=== PATIENT | female | born 1975 ===

== ENCOUNTER 2019-11-09 06:34 | Inpatient (IN) ==
[2019-11-09 08:00] LABS: Hematocrit 25.7 VOL% (35.7-47.0); INR 1.1; PT Patient Result 11.5 SECS (9.8-11.9); Partial Thromboplastin Time 23.3 SECS (23.9-33.8)
[2019-11-09 08:03] LABS: Apearance,Urine CLEAR (Clear); Bilirubin,Urine Negative (Negative); Blood, Urine Negative (Negative); Glucose,Urine (UA) Negative (Negative); Ketones,Urine Negative (Negative); Nitrite,Urine Negative (Negative); Protein,Urine Negative; Squamous Epithelial Cell,Urine Occasional /HPF (0-10); Urine Color Colorless (Yellow); Urine Specific Gravity 1.002 (1.001-1.035); Urine Urobilinogen < 2.0 EU/DL (0.2-1.0); WBC,Urine <1 /HPF (0-6)
[2019-11-09 08:09] LABS: Albumin 2.9 G/DL (3.4-5.0); Bilirubin,Total 0.4 MG/DL (0.2-1.0); Calcium 7.6 MG/DL (8.5-10.1); Total Protein 8.2 G/DL (6.4-8.3)
[2019-11-09 08:22] LABS: Basophils # 0.1 10*3/uL (0.0-0.2); Basophils % 1.1 % (0.0-0.8); Eosinophils # 0.1 10*3/uL (0.0-0.87); Immature Granulocytes % 1.1 %; Immature Granulocytes Absolute 0.05 #; Lymphocytes # 1.8 10*3/uL (1.4-4.0); Lymphocytes % 41.1 % (21.3-54.2); Mean Corpuscular HGB Conc 27.6 GM/DL (32-36); Mean Corpuscular Volume 61.2 FL (87-102); Monocytes % 8.9 % (1.7-12.7); NRBC # 0.02 10*3/uL; Neutrophils % 44.8 % (38.7-73.9); Red Cell Distribution Width 22.1 % (9.3-17.3); White Blood Count 4.4 T/CUMM (4-12)
[2019-11-09 08:25] LABS: Platelet Count 21 T/CUMM (130-400)
[2019-11-09 08:26] LABS: Hemoglobin 7.1 GM/DL (12.0-16.0)
[2019-11-09 08:29] LABS: Hypochromasia 2+; Microcytosis 1+; Platelet Estimate Decreased
[2019-11-09] MEDS ORDERED: SODIUM CHLORIDE 0.9% 1,000 ML IV STA (08:49)
[2019-11-09] MEDS ORDERED: PANTOPRAZOLE 40 MG VIAL IV STA (08:49)
[2019-11-09] MEDS ORDERED: POTASSIUM CHLORIDE 20 MEQ TABLET PO STA (08:50)
[2019-11-09] MEDS ORDERED: GLUCAGON 1 MG VIAL IM PRN (09:21)
[2019-11-09] MEDS ORDERED: DEXTROSE 50% 25 GM/50 ML VIAL IV PRN (09:21)
[2019-11-09] MEDS ORDERED: LORazepam 2 MG/1 ML VIAL IV PRN (09:24)
[2019-11-09] MEDS ORDERED: ACETAMINOPHEN 325 MG TABLET PO PRN (09:28)
[2019-11-09] MEDS ORDERED: ONDANSETRON 4 MG/2 ML VIAL IV PRN (09:28)
[2019-11-09] MEDS ORDERED: SODIUM CHLORIDE 0.9% 1,000 ML IV PRN (09:51)
[2019-11-09] MEDS ORDERED: DEXTROSE 10% 250 ML BAG IV PRN (12:00)
[2019-11-09] MEDS: chlordiazePOXIDE 25 MG CAPSULE PO SCH ×3 (13:53→21:38)
[2019-11-09] MEDS: DEXT 5% NACL 0.45% KCL 20 MEQ 20 MEQ/1,000 ML BAG IV SCH ×2 (17:51→19:50)
[2019-11-09] MEDS ORDERED: EFAVIRENZ EMTRICITABIN TENOFOV PO SCH (21:00)
[2019-11-09] MEDS: THIAMINE 200 MG/2 ML VIAL IV SCH (21:38)
[2019-11-10] MEDS: DEXT 5% NACL 0.45% KCL 20 MEQ 20 MEQ/1,000 ML BAG IV SCH (03:50)
[2019-11-10 05:44] LABS: Basophils % 0.5 % (0.0-0.8); Eosinophils # 0.3 10*3/uL (0.0-0.87); Eosinophils % 6.6 % (0.00-10.9); Hematocrit 31.5 VOL% (35.7-47.0); Immature Granulocytes % 0.2 %; Immature Granulocytes Absolute 0.01 #; Lymphocytes # 1.5 10*3/uL (1.4-4.0); Lymphocytes % 34.5 % (21.3-54.2); Mean Corpuscular HGB Conc 29.2 GM/DL (32-36); Monocytes % 9.9 % (1.7-12.7); Neutrophils % 48.3 % (38.7-73.9); Red Blood Count 4.63 MC/CUMM (3.8-5.5); Red Cell Distribution Width 26.1 % (9.3-17.3); White Blood Count 4.2 T/CUMM (4-12)
[2019-11-10 05:53] LABS: Hemoglobin 9.2 GM/DL (12.0-16.0); Platelet Count 18 T/CUMM (130-400)
[2019-11-10 05:54] LABS: % Iron Saturation 11.7 % (18-50); Ferritin 6.6 ng/ml (8-252); Iron 46 UG/DL (50-170); Iron Binding Capacity 392 UG/DL (250-450)
[2019-11-10 06:02] LABS: Vitamin B12 336 PG/ML (211-911)
[2019-11-10 06:03] LABS: Anisocytosis 1+; Hypochromasia 2+; Microcytosis 1+
[2019-11-10 06:04] LABS: Ovalocytes Slight; Platelet Estimate Decreased
[2019-11-10 06:59] LABS: Sedimentation Rate-Westergren 10 MM/HR (0-20)
[2019-11-10] MEDS: chlordiazePOXIDE 25 MG CAPSULE PO SCH (08:30)
[2019-11-10] MEDS ORDERED: PANTOPRAZOLE 40 MG TABLET PO SCH (09:00)
[2019-11-10] MEDS ORDERED: FOLIC ACID 0.4 MG TABLET PO SCH (09:00)
[2019-11-10] MEDS: THIAMINE 200 MG/2 ML VIAL IV SCH (10:07)
[2019-11-10 11:52] VITALS: BP 129/86
[2019-11-10] MEDS ORDERED: LOPERAMIDE 2 MG CAPSULE PO PRN (12:04)
[2019-11-11 08:27] LABS: Hemoglobin A1 (Alkaline) 97.3 % (96.5-98.5); Hemoglobin A2 (Alkaline) 2.7 % (1.5-3.5)
[2019-11-11] MEDS ORDERED: FERROUS SULFATE 325 MG TABLET PO SCH (09:00)
== END 2019-11-10 13:23 | disposition home or self-care (01) | DRG 137 ==
LOC: N.ED 06:34 → EDUNIT# 06:43 → EDBD 06:43 → N.EDINP 09:21 → N.2E 10:50
PROVIDERS: ADMIT Hospitalist; ATTEND Hospitalist

== ENCOUNTER 2020-04-15 06:08 | Inpatient (IN) ==
[2020-04-15] MEDS ORDERED: SODIUM CHLORIDE 0.9% 1,000 ML IV STA (06:32)
[2020-04-15 06:56] LABS: Basophils % 0.2 % (0.0-0.8); Eosinophils # 0.1 10*3/uL (0.0-0.87); Eosinophils % 2.3 % (0.00-10.9); Immature Granulocytes % 1.8 %; Immature Granulocytes Absolute 0.11 #; Lymphocytes % 16.4 % (21.3-54.2); Mean Corpuscular HGB Conc 25.2 GM/DL (32-36); Mean Corpuscular Volume 62.5 FL (87-102); Monocytes % 14.4 % (1.7-12.7); NRBC # 0.15 10*3/uL; Neutrophils % 64.9 % (38.7-73.9); Red Blood Count 1.84 MC/CUMM (3.8-5.5); Red Cell Distribution Width 18.6 % (9.3-17.3)
[2020-04-15] MEDS ORDERED: SODIUM CHLORIDE 0.9% 1,000 ML IV PRN (07:04)
[2020-04-15 07:07] LABS: Hematocrit 11.5 VOL% (35.7-47.0); Hemoglobin 2.9 GM/DL (12.0-16.0)
[2020-04-15 07:08] LABS: Platelet Count 3 T/CUMM (130-400)
[2020-04-15] MEDS ORDERED: MORPHINE 10 MG/1 ML VIAL IV STA (07:08)
[2020-04-15] MEDS ORDERED: cloNIDine 0.1 MG TABLET PO STA (07:09)
[2020-04-15 07:23] LABS: Albumin 2.2 G/DL (3.4-5.0); Bilirubin,Total 0.4 MG/DL (0.2-1.0); Calcium 7.1 MG/DL (8.5-10.1); Osmolality,Calculated 278.4 MOS/KG (273-304); Potassium 2.9 MMOL/L (3.5-5.1); Total Protein 6.5 G/DL (6.4-8.3)
[2020-04-15] MEDS ORDERED: ZALEPLON 5 MG CAPSULE PO PRN (07:46)
[2020-04-15] MEDS ORDERED: ONDANSETRON 4 MG/2 ML VIAL IV PRN (07:46)
[2020-04-15] MEDS ORDERED: ACETAMINOPHEN 325 MG TABLET PO PRN (07:46)
[2020-04-15] MEDS ORDERED: PANTOPRAZOLE 40 MG TABLET PO SCH (09:00)
[2020-04-15 15:33] LABS: Bilirubin,Urine Negative (Negative); Blood, Urine Large mg/dL (Negative); Glucose,Urine (UA) Negative (Negative); Ketones,Urine Negative (Negative); Mucus,Urine Occasional /LPF (Occasional); Nitrite,Urine Negative (Negative); Protein,Urine 100 MG/DL; RBC,Urine 1985 /HPF (0-4); Urine Appearance Slightly Hazy (Clear); Urine Color Amber (Yellow); Urine Specific Gravity 1.015 (1.001-1.035); WBC,Urine 13 /HPF (0-6)
[2020-04-15] MEDS ORDERED: LOPERAMIDE 2 MG CAPSULE PO PRN (17:36)
[2020-04-15] MEDS ORDERED: chlordiazePOXIDE 10 MG CAPSULE PO PRN (17:41)
[2020-04-15] MEDS ORDERED: LORazepam 2 MG/1 ML VIAL IV PRN (18:01)
[2020-04-16 04:31] LABS: Basophils # 0.1 10*3/uL (0.0-0.2); Basophils % 1.1 % (0.0-0.8); Eosinophils # 0.2 10*3/uL (0.0-0.87); Eosinophils % 2.5 % (0.00-10.9); Hematocrit 25.8 VOL% (35.7-47.0); Hemoglobin 8.2 GM/DL (12.0-16.0); Immature Granulocytes % 2.5 %; Immature Granulocytes Absolute 0.16 #; Lymphocytes # 1.3 10*3/uL (1.4-4.0); Lymphocytes % 20.9 % (21.3-54.2); Mean Corpuscular HGB Conc 31.8 GM/DL (32-36); Mean Corpuscular Volume 78.9 FL (87-102); Monocytes % 13.2 % (1.7-12.7); Neutrophils % 59.8 % (38.7-73.9); Red Blood Count 3.27 MC/CUMM (3.8-5.5); Red Cell Distribution Width 22.5 % (9.3-17.3); White Blood Count 6.3 T/CUMM (4-12)
[2020-04-16 04:33] LABS: Platelet Count 9 T/CUMM (130-400)
[2020-04-16 04:48] LABS: Bilirubin,Total 0.6 MG/DL (0.2-1.0); Calcium 7.2 MG/DL (8.5-10.1); Osmolality,Calculated 272.7 MOS/KG (273-304); Potassium 3.2 MMOL/L (3.5-5.1); Thyroid Stimulating Hormone 3.25 uIU/ml (0.358-3.74); Total Protein 5.7 G/DL (6.4-8.3)
[2020-04-16 05:14] LABS: Hypochromasia 1+
[2020-04-16 05:15] LABS: Microcytosis Slight; Platelet Estimate Decreased
[2020-04-16] MEDS ORDERED: SODIUM CHLORIDE 0.9% 1,000 ML IV PRN ×2 (05:34→17:04)
[2020-04-16] MEDS ORDERED: POTASSIUM CHLORIDE 20 MEQ TABLET PO ONE (07:31)
[2020-04-16] MEDS ORDERED: CALCIUM GLUCONATE 1,000 MG in SODIUM CHLORIDE 0.9% 100 ML IV ONE (09:00)
[2020-04-16] MEDS: FERROUS SULFATE 325 MG TABLET PO SCH (09:46)
[2020-04-16] MEDS: FAMOTIDINE 20 MG TABLET PO SCH (09:47)
[2020-04-16] MEDS: FOLIC ACID 0.4 MG TABLET PO SCH (09:49)
[2020-04-16] MEDS: NICOTINE 21 MG/24 HR PATCH TRANSDERM SCH (09:50)
[2020-04-16 16:42] LABS: Basophils % 0.6 % (0.0-0.8); Eosinophils # 0.1 10*3/uL (0.0-0.87); Eosinophils % 1.8 % (0.00-10.9); Hematocrit 22.7 VOL% (35.7-47.0); Hemoglobin 7.3 GM/DL (12.0-16.0); Immature Granulocytes % 2.3 %; Immature Granulocytes Absolute 0.15 #; Lymphocytes % 15.5 % (21.3-54.2); Mean Corpuscular HGB Conc 32.2 GM/DL (32-36); Mean Corpuscular Volume 77.5 FL (87-102); Monocytes % 10.3 % (1.7-12.7); NRBC # 0.36 10*3/uL; Neutrophils % 69.5 % (38.7-73.9); Red Blood Count 2.93 MC/CUMM (3.8-5.5); Red Cell Distribution Width 22.5 % (9.3-17.3); White Blood Count 6.6 T/CUMM (4-12)
[2020-04-16 16:44] LABS: Platelet Count 16 T/CUMM (130-400)
[2020-04-17 04:41] LABS: Basophils # 0.1 10*3/uL (0.0-0.2); Basophils % 0.9 % (0.0-0.8); Eosinophils # 0.2 10*3/uL (0.0-0.87); Eosinophils % 3.4 % (0.00-10.9); Hematocrit 27.8 VOL% (35.7-47.0); Hemoglobin 9.3 GM/DL (12.0-16.0); Immature Granulocytes % 2.3 %; Immature Granulocytes Absolute 0.13 #; Lymphocytes # 1.2 10*3/uL (1.4-4.0); Lymphocytes % 21.2 % (21.3-54.2); Mean Corpuscular HGB Conc 33.5 GM/DL (32-36); Mean Corpuscular Volume 82.2 FL (87-102); Monocytes % 12.7 % (1.7-12.7); NRBC # 0.38 10*3/uL; Neutrophils % 59.5 % (38.7-73.9); Red Blood Count 3.38 MC/CUMM (3.8-5.5); Red Cell Distribution Width 21.9 % (9.3-17.3); White Blood Count 5.6 T/CUMM (4-12)
[2020-04-17 04:54] LABS: Platelet Count 8 T/CUMM (130-400)
[2020-04-17 05:01] LABS: Hypochromasia 1+; Microcytosis 1+; Ovalocytes Slight; Platelet Estimate Decreased
[2020-04-17 05:20] LABS: Calcium 7.3 MG/DL (8.5-10.1); Osmolality,Calculated 275.4 MOS/KG (273-304); Potassium 3.4 MMOL/L (3.5-5.1); Total Protein 5.7 G/DL (6.4-8.3)
[2020-04-17] MEDS ORDERED: SODIUM CHLORIDE 0.9% 1,000 ML IV PRN ×2 (05:30→18:42)
[2020-04-17] MEDS ORDERED: POTASSIUM CHLORIDE 20 MEQ TABLET PO ONE (08:30)
[2020-04-17] MEDS: FERROUS SULFATE 325 MG TABLET PO SCH (08:56)
[2020-04-17] MEDS: NICOTINE 21 MG/24 HR PATCH TRANSDERM SCH (08:56)
[2020-04-17] MEDS: FOLIC ACID 0.4 MG TABLET PO SCH (08:56)
[2020-04-17] MEDS: FAMOTIDINE 20 MG TABLET PO SCH (08:56)
[2020-04-17] MEDS: cefTRIAXone 1,000 MG in SYRINGE 1 EACH IV SCH (14:34)
[2020-04-17 16:11] LABS: % CD4 (T Cells) 15 % (32-64); % CD8 (T Cells) 52 % (13-40); 4/8 Ratio 0.3 (>=0.9)
[2020-04-17 18:39] LABS: INR 2.1; PT Patient Result 21.7 SECS (9.8-11.9); Partial Thromboplastin Time 37.4 SECS (23.9-33.8)
[2020-04-18 05:48] LABS: Basophils % 0.5 % (0.0-0.8); Eosinophils # 0.1 10*3/uL (0.0-0.87); Eosinophils % 2.5 % (0.00-10.9); Hematocrit 22.3 VOL% (35.7-47.0); Immature Granulocytes % 1.1 %; Immature Granulocytes Absolute 0.06 #; Lymphocytes # 1.4 10*3/uL (1.4-4.0); Lymphocytes % 24.8 % (21.3-54.2); Mean Corpuscular HGB Conc 32.7 GM/DL (32-36); Monocytes % 11.5 % (1.7-12.7); NRBC # 0.09 10*3/uL; Neutrophils % 59.6 % (38.7-73.9); Red Blood Count 2.72 MC/CUMM (3.8-5.5); Red Cell Distribution Width 22.6 % (9.3-17.3); White Blood Count 5.6 T/CUMM (4-12)
[2020-04-18 06:01] LABS: Calcium 7.9 MG/DL (8.5-10.1); Osmolality,Calculated 277.4 MOS/KG (273-304); Potassium 3.4 MMOL/L (3.5-5.1)
[2020-04-18 06:29] LABS: Hemoglobin 7.3 GM/DL (12.0-16.0); Platelet Count 11 T/CUMM (130-400)
[2020-04-18 06:39] LABS: Hypochromasia 2+; Microcytosis 1+; Platelet Estimate Decreased
[2020-04-18] MEDS: FERROUS SULFATE 325 MG TABLET PO SCH (09:14)
[2020-04-18] MEDS: FAMOTIDINE 20 MG TABLET PO SCH (09:14)
[2020-04-18] MEDS: NICOTINE 21 MG/24 HR PATCH TRANSDERM SCH (09:15)
[2020-04-18] MEDS: FOLIC ACID 0.4 MG TABLET PO SCH (09:15)
[2020-04-18] MEDS ORDERED: SODIUM CHLORIDE 0.9% 1,000 ML IV PRN (12:00)
[2020-04-18] MEDS: cefTRIAXone 1,000 MG in SYRINGE 1 EACH IV SCH (15:49)
[2020-04-18] MEDS: SULFAMETHOX/TRIMETHOPRIM 800-160 MG TABLET PO SCH (15:49)
[2020-04-19 06:30] LABS: Basophils % 0.9 % (0.0-0.8); Eosinophils # 0.3 10*3/uL (0.0-0.87); Eosinophils % 6.4 % (0.00-10.9); Hematocrit 21.8 VOL% (35.7-47.0); Immature Granulocytes % 0.7 %; Immature Granulocytes Absolute 0.03 #; Lymphocytes # 1.3 10*3/uL (1.4-4.0); Mean Corpuscular HGB Conc 32.1 GM/DL (32-36); Mean Corpuscular Volume 83.5 FL (87-102); NRBC # 0.04 10*3/uL; Red Blood Count 2.61 MC/CUMM (3.8-5.5); White Blood Count 4.4 T/CUMM (4-12)
[2020-04-19 06:40] LABS: Calcium 8.2 MG/DL (8.5-10.1); Osmolality,Calculated 272.7 MOS/KG (273-304); Potassium 3.6 MMOL/L (3.5-5.1)
[2020-04-19 06:42] LABS: Platelet Count 9 T/CUMM (130-400)
[2020-04-19 06:58] LABS: Hypochromasia 2+; Microcytosis 1+; Platelet Estimate Decreased
[2020-04-19] MEDS ORDERED: AZITHROMYCIN 40 MG/ML 15 ML/BOTTLE PO SCH (09:00)
[2020-04-19] MEDS: FAMOTIDINE 20 MG TABLET PO SCH (09:36)
[2020-04-19] MEDS: NICOTINE 21 MG/24 HR PATCH TRANSDERM SCH (09:36)
[2020-04-19] MEDS: SULFAMETHOX/TRIMETHOPRIM 800-160 MG TABLET PO SCH (09:36)
[2020-04-19] MEDS: FOLIC ACID 0.4 MG TABLET PO SCH (09:36)
[2020-04-19] MEDS: FERROUS SULFATE 325 MG TABLET PO SCH (09:36)
[2020-04-19] MEDS: cefTRIAXone 1,000 MG in SYRINGE 1 EACH IV SCH (17:27)
[2020-04-20 06:16] LABS: Basophils # 0.1 10*3/uL (0.0-0.2); Basophils % 1.1 % (0.0-0.8); Eosinophils # 0.4 10*3/uL (0.0-0.87); Hematocrit 30.5 VOL% (35.7-47.0); Hemoglobin 9.9 GM/DL (12.0-16.0); Immature Granulocytes % 0.9 %; Immature Granulocytes Absolute 0.04 #; Lymphocytes # 1.5 10*3/uL (1.4-4.0); Lymphocytes % 33.2 % (21.3-54.2); Mean Corpuscular HGB Conc 32.5 GM/DL (32-36); Mean Corpuscular Volume 85.4 FL (87-102); Neutrophils % 43.8 % (38.7-73.9); Red Blood Count 3.57 MC/CUMM (3.8-5.5); Red Cell Distribution Width 19.6 % (9.3-17.3); White Blood Count 4.4 T/CUMM (4-12)
[2020-04-20 06:17] LABS: Platelet Count 10 T/CUMM (130-400)
[2020-04-20 06:22] LABS: INR 1.1; PT Patient Result 11.4 SECS (9.8-11.9); Partial Thromboplastin Time 26.8 SECS (23.9-33.8)
[2020-04-20 06:47] LABS: Hypochromasia 1+
[2020-04-20 06:48] LABS: Macrocytosis Slight; Platelet Estimate Decreased; Polychromasia Slight
[2020-04-20] MEDS ORDERED: MAGNESIUM SULF RIDER 2 GM in PREMIX 1 EACH IV PRN (07:30)
[2020-04-20] MEDS: FERROUS SULFATE 325 MG TABLET PO SCH (09:49)
[2020-04-20] MEDS: FOLIC ACID 0.4 MG TABLET PO SCH (09:49)
[2020-04-20] MEDS: FAMOTIDINE 20 MG TABLET PO SCH (09:49)
[2020-04-20] MEDS: SULFAMETHOX/TRIMETHOPRIM 800-160 MG TABLET PO SCH (09:49)
[2020-04-20] MEDS: NICOTINE 21 MG/24 HR PATCH TRANSDERM SCH (09:51)
[2020-04-20] MEDS: POTASSIUM CHLORIDE RIDER 10 MEQ in PREMIX 1 EACH IV PRN ×2 (12:55→13:55)
[2020-04-20] MEDS: cefTRIAXone 1,000 MG in SYRINGE 1 EACH IV SCH (13:52)
[2020-04-21 05:54] LABS: Basophils # 0.1 10*3/uL (0.0-0.2); Basophils % 1.1 % (0.0-0.8); Eosinophils # 0.5 10*3/uL (0.0-0.87); Eosinophils % 9.8 % (0.00-10.9); Hematocrit 30.6 VOL% (35.7-47.0); Hemoglobin 9.9 GM/DL (12.0-16.0); Immature Granulocytes % 0.6 %; Immature Granulocytes Absolute 0.03 #; Lymphocytes # 1.4 10*3/uL (1.4-4.0); Lymphocytes % 28.9 % (21.3-54.2); Mean Corpuscular HGB Conc 32.4 GM/DL (32-36); Mean Corpuscular Volume 86.4 FL (87-102); Monocytes % 12.6 % (1.7-12.7); Red Blood Count 3.54 MC/CUMM (3.8-5.5); Red Cell Distribution Width 19.6 % (9.3-17.3); White Blood Count 4.7 T/CUMM (4-12)
[2020-04-21 06:07] LABS: Calcium 8.3 MG/DL (8.5-10.1); Osmolality,Calculated 274.7 MOS/KG (273-304); Potassium 3.9 MMOL/L (3.5-5.1)
[2020-04-21 06:11] LABS: Platelet Count 9 T/CUMM (130-400)
[2020-04-21 07:00] LABS: Anisocytosis 2+; Platelet Estimate Decreased
[2020-04-21 07:01] LABS: Polychromasia Slight
[2020-04-21] MEDS: NICOTINE 21 MG/24 HR PATCH TRANSDERM SCH (08:36)
[2020-04-21] MEDS: FAMOTIDINE 20 MG TABLET PO SCH (08:38)
[2020-04-21] MEDS: SULFAMETHOX/TRIMETHOPRIM 800-160 MG TABLET PO SCH (08:38)
[2020-04-21] MEDS: FERROUS SULFATE 325 MG TABLET PO SCH (08:38)
[2020-04-21] MEDS: FOLIC ACID 0.4 MG TABLET PO SCH (08:45)
[2020-04-21] MEDS ORDERED: SODIUM CHLORIDE 0.9% 1,000 ML IV PRN (10:06)
[2020-04-21] MEDS: DEXAMETHASONE 4 MG TABLET PO SCH (12:40)
[2020-04-21] MEDS: cefTRIAXone 1,000 MG in SYRINGE 1 EACH IV SCH (13:27)
[2020-04-22 05:32] LABS: Basophils % 0.2 % (0.0-0.8); Hematocrit 31.3 VOL% (35.7-47.0); Hemoglobin 10.1 GM/DL (12.0-16.0); Immature Granulocytes % 0.3 %; Immature Granulocytes Absolute 0.02 #; Lymphocytes # 1.3 10*3/uL (1.4-4.0); Lymphocytes % 20.4 % (21.3-54.2); Mean Corpuscular HGB Conc 32.3 GM/DL (32-36); Mean Corpuscular Volume 85.8 FL (87-102); Monocytes % 5.9 % (1.7-12.7); Neutrophils % 73.2 % (38.7-73.9); Red Blood Count 3.65 MC/CUMM (3.8-5.5); Red Cell Distribution Width 18.7 % (9.3-17.3); White Blood Count 6.3 T/CUMM (4-12)
[2020-04-22 05:41] LABS: PT Patient Result 10.6 SECS (9.8-11.9); Partial Thromboplastin Time 26.4 SECS (23.9-33.8)
[2020-04-22 05:45] LABS: Platelet Count 17 T/CUMM (130-400)
[2020-04-22 05:52] LABS: Calcium 8.8 MG/DL (8.5-10.1); Osmolality,Calculated 269.1 MOS/KG (273-304); Potassium 3.9 MMOL/L (3.5-5.1)
[2020-04-22 07:04] LABS: Hepatitis B Core IgM Quant 0.14 Index; Hepatitis B Surface Ag Quant < 0.10 Index; Hepatitis B Surface Ag Result Negative (Negative); Hepatitis C Virus Ab Quant 0.03 Index; Hepatitis C Virus Ab Result Negative (Negative)
[2020-04-22] MEDS: SULFAMETHOX/TRIMETHOPRIM 800-160 MG TABLET PO SCH (08:57)
[2020-04-22] MEDS: FAMOTIDINE 20 MG TABLET PO SCH (08:57)
[2020-04-22] MEDS: FOLIC ACID 0.4 MG TABLET PO SCH (08:57)
[2020-04-22] MEDS: DEXAMETHASONE 4 MG TABLET PO SCH (08:57)
[2020-04-22] MEDS: FERROUS SULFATE 325 MG TABLET PO SCH (08:57)
[2020-04-22] MEDS: NICOTINE 21 MG/24 HR PATCH TRANSDERM SCH (08:58)
[2020-04-22 13:43] VITALS: BP 103/67
[2020-04-22] MEDS: cefTRIAXone 1,000 MG in SYRINGE 1 EACH IV SCH (13:48)
== END 2020-04-22 16:20 | disposition home or self-care (01) | DRG 894 ==
LOC: EDUNIT# → EDBD → N.ED 06:08 → N.EDINP 07:33 → SUATTDRO 07:33 → N.ICU 07:58 → N.TELEN 04-18 13:17
PROVIDERS: ADMIT Internal Medicine; ATTEND Hospitalist

== ENCOUNTER 2020-08-23 03:53 | Inpatient (IN) ==
[2020-08-23] MEDS ORDERED: ALBUTEROL/IPRATROPIUM 3 ML NEB RESP TX STA (04:36)
[2020-08-23] MEDS ORDERED: THIAMINE INJ 100 MG, FOLIC ACID INJ 1 MG, MAGNESIUM SULF INJ 2 GM, MULTIVITAMIN INJ 10 ... IV ONE (04:36)
[2020-08-23] MEDS ORDERED: methylPREDNISolone SOD SUC 125 MG/2 ML VIAL IV STA (04:36)
[2020-08-23] MEDS ORDERED: CLINDAMYCIN INJ 600 MG in PREMIX 1 EACH IV STA (04:41)
[2020-08-23 05:05] LABS: ABG Base Excess -3.3 MMOL/L (-2.5-2.5); ABG HCO3 21.6 MMOL/L (20-26); ABG Oxygen Saturation 95.7 % (95-100); ABG PO2 83.7 MM HG (80-95); Allen Test Positive; Pt O2 Delivery Device Room Air
[2020-08-23 05:05] LABS: INR 1.1
[2020-08-23 05:19] LABS: Salicylate < 2.8 MG/DL (2.8-20)
[2020-08-23 05:20] LABS: Acetaminophen < 2.0 UG/ML (10-30); Lactic Acid 3.6 MMOL/L (0.4-2.0)
[2020-08-23] MEDS ORDERED: SODIUM CHLORIDE 0.9% 1,000 ML IV STA (05:20)
[2020-08-23 05:21] LABS: Basophils # 0.1 10*3/uL (0.0-0.2); Basophils % 1.3 % (0.0-0.8); Eosinophils # 0.2 10*3/uL (0.0-0.87); Hematocrit 29.3 VOL% (35.7-47.0); Hemoglobin 7.9 GM/DL (12.0-16.0); Immature Granulocytes % 1.4 %; Immature Granulocytes Absolute 0.08 #; Lymphocytes % 18.7 % (21.3-54.2); Mean Corpuscular Volume 62.9 FL (87-102); Monocytes % 9.8 % (1.7-12.7); NRBC # 0.02 10*3/uL; Neutrophils % 64.8 % (38.7-73.9); Red Blood Count 4.66 MC/CUMM (3.8-5.5); Red Cell Distribution Width 21.3 % (9.3-17.3); White Blood Count 5.5 T/CUMM (4-12)
[2020-08-23 05:25] LABS: Platelet Count 5 T/CUMM (130-400)
[2020-08-23 05:29] LABS: Bacteria,Urine Occasional /HPF (Few); Bilirubin,Urine Negative (Negative); Blood, Urine Negative (Negative); Glucose,Urine (UA) Negative (Negative); Ketones,Urine Negative (Negative); Mucus,Urine Occasional /LPF (Occasional); Nitrite,Urine Negative (Negative); Protein,Urine Negative; RBC,Urine <1 /HPF (0-4); Urine Appearance CLEAR (Clear); Urine Color Yellow (Yellow); Urine Specific Gravity 1.004 (1.001-1.035); Urine Urobilinogen < 2.0 EU/DL (0.2-1.0); WBC,Urine 1 /HPF (0-6)
[2020-08-23 05:31] LABS: Barbiturates Screen,Urine Negative (Negative); Benzodiazepines Screen,Urine Negative (Negative); Cannabinoid Screen,Urine Negative (Negative); Opiate Screen,Urine Negative (Negative); Phencyclidine Screen,Urine Negative (Negative)
[2020-08-23 05:35] LABS: Alanine Aminotransferase 43 U/L (13-56); Albumin 2.9 G/DL (3.4-5.0); Alkaline Phosphatase 98 U/L (45-117); Aspartate Amino Transferase 62 U/L (0-37); Bilirubin,Total < 0.39 MG/DL (0.2-1.0); Blood Urea Nitrogen 6 MG/DL (7-18); Calcium 8.2 MG/DL (8.5-10.1); Estimated Glom Filtration Rate 156 ML/MIN; Total Protein 9.5 G/DL (6.4-8.2)
[2020-08-23 05:36] LABS: Carbon Dioxide 21 MMOL/L (21-32); Glucose 100 MG/DL (74-106); Osmolality,Calculated 276.4 MOS/KG (273-304); Potassium 3.1 MMOL/L (3.5-5.1); Sodium 140 MMOL/L (136-145); Troponin I < 0.015 NG/ML (0.00-0.045)
[2020-08-23 05:37] LABS: Hypochromasia 1+; Ovalocytes Slight
[2020-08-23 05:38] LABS: Microcytosis 2+; Platelet Estimate Decreased; Polychromasia Slight; Target Cells Slight
[2020-08-23] MEDS ORDERED: SODIUM CHLORIDE 0.9% 1,000 ML IV PRN (05:43)
[2020-08-23] MEDS ORDERED: POTASSIUM CHLORIDE 20 MEQ TABLET PO STA (05:52)
[2020-08-23] MEDS ORDERED: LORazepam 2 MG/1 ML VIAL IV PRN ×2 (06:07→06:08)
[2020-08-23] MEDS ORDERED: ONDANSETRON 4 MG/2 ML VIAL IV PRN (06:13)
[2020-08-23] MEDS ORDERED: DOCUSATE SODIUM 100 MG CAPSULE PO PRN (06:13)
[2020-08-23] MEDS ORDERED: ALBUTEROL 2.5 MG/3 ML NEB RESP TX PRN (06:13)
[2020-08-23] MEDS ORDERED: ACETAMINOPHEN 325 MG TABLET PO PRN (06:13)
[2020-08-23] MEDS ORDERED: POTASSIUM CHLORIDE 20 MEQ TABLET PO PRN (06:50)
[2020-08-23] MEDS: CLINDAMYCIN INJ 600 MG in PREMIX 1 EACH IV SCH ×3 (06:54→18:09)
[2020-08-23] MEDS ORDERED: NICOTINE 7 MG/24 HR PATCH TRANSDERM PRN (06:55)
[2020-08-23 07:03] LABS: % Iron Saturation 3.2 % (18-50); Ferritin 6.7 ng/ml (8-252)
[2020-08-23] MEDS: SODIUM CHLORIDE 0.9% 1,000 ML IV SCH ×2 (11:48→17:05)
[2020-08-23 17:08] VITALS: BP 128/79
[2020-08-23] MEDS ORDERED: IRON DEXTRAN 25 MG in SYRINGE 1 EACH IV ONE (19:29)
[2020-08-23] MEDS ORDERED: ACETAMINOPHEN 500 MG TABLET PO ONE (19:30)
[2020-08-23] MEDS ORDERED: diphenhydrAMINE 50 MG/1 ML VIAL IV ONE (19:30)
[2020-08-23] MEDS ORDERED: FAMOTIDINE 20 MG/2 ML VIAL IV ONE (19:31)
[2020-08-23] MEDS ORDERED: DEXAMETHASONE 10 MG/1 ML VIAL IV ONE (19:31)
[2020-08-23] MEDS: DEXAMETHASONE 4 MG TABLET PO SCH (20:09)
[2020-08-23] MEDS ORDERED: IRON DEXTRAN 1,500 MG in SODIUM CHLORIDE 0.9% 500 ML IV ONE (21:00)
[2020-08-24] MEDS: CLINDAMYCIN INJ 600 MG in PREMIX 1 EACH IV SCH ×3 (00:40→12:24)
[2020-08-24] MEDS: SODIUM CHLORIDE 0.9% 1,000 ML IV SCH ×2 (01:11→08:50)
[2020-08-24 05:35] LABS: Basophils % 0.1 % (0.0-0.8); Hematocrit 28.2 VOL% (35.7-47.0); Hemoglobin 7.8 GM/DL (12.0-16.0); Immature Granulocytes % 1.2 %; Immature Granulocytes Absolute 0.11 #; Lymphocytes % 10.9 % (21.3-54.2); Mean Corpuscular HGB Conc 27.7 GM/DL (32-36); Monocytes % 1.9 % (1.7-12.7); NRBC # 0.03 10*3/uL; Neutrophils % 85.9 % (38.7-73.9); Red Blood Count 4.21 MC/CUMM (3.8-5.5); Red Cell Distribution Width 23.5 % (9.3-17.3)
[2020-08-24 05:39] LABS: Platelet Count 15 T/CUMM (130-400)
[2020-08-24 05:43] LABS: Total Protein 8.5 G/DL (6.4-8.2)
[2020-08-24 05:52] LABS: Hypochromasia 1+; Microcytosis 2+; Ovalocytes Few
[2020-08-24 05:53] LABS: Platelet Estimate Decreased; Tear Drop Cells Slight
[2020-08-24 06:46] LABS: Albumin 2.4 G/DL (3.4-5.0); Bilirubin,Total 1.1 MG/DL (0.2-1.0); Calcium 7.9 MG/DL (8.5-10.1); Osmolality,Calculated 277.5 MOS/KG (273-304); Potassium 3.7 MMOL/L (3.5-5.1); Total Protein 8.3 G/DL (6.4-8.2)
[2020-08-24 06:51] LABS: Immunoglobulin G (Chem) 3060 MG/DL (700-1600); Total Protein (Chem) 8.5 G/DL (6.4-8.3)
[2020-08-24 06:52] LABS: Immunoglobulin A (Chem) 410 MG/DL (70-400); Immunoglobulin M (Chem) 321 MG/DL (40-230)
[2020-08-24 06:53] LABS: Albumin (SPE) 3.8 G/DL (3.2-5.3); Albumin (SPE) Rel % 44.5 %; Alpha 1 (SPE) 0.2 G/DL (0.1-0.4); Alpha 1 (SPE) Rel % 2.1 %; Alpha 2 (SPE) 0.6 G/DL (0.4-1.0); Alpha 2 (SPE) Rel % 7.4 %; Beta (SPE) 0.7 G/DL (0.5-1.1); Beta (SPE) Rel % 8.4 %; Gamma (SPE) 3.2 G/DL (0.7-1.7); Gamma (SPE) Rel % 37.6 %
[2020-08-24 07:12] LABS: Immuno Free Light Chain Kappa 10.26 MG/DL (0.33-1.94); Immuno Free Light Chain Lambda 12.28 MG/DL (0.57-2.63); Immuno Free Light Chain Ratio 0.84 MG/DL (0.26-1.65)
[2020-08-24] MEDS: DEXAMETHASONE 4 MG TABLET PO SCH (08:51)
[2020-08-24] MEDS ORDERED: FOLIC ACID 1 MG TABLET PO SCH (09:00)
[2020-08-25 13:01] LABS: % CD4 (T Cells) 8 % (32-64); % CD8 (T Cells) 50 % (13-40); 4/8 Ratio 0.2 (>=0.9)
== END 2020-08-24 13:04 | DRG 812 ==
LOC: EDBD → EDUNIT# → N.ED 03:53 → N.EDINP 05:50 → SUATTDRO 05:50 → N.ICU 14:09
PROVIDERS: ADMIT Family Medicine; ATTEND Internal Medicine

== ENCOUNTER 2022-01-30 18:05 | Inpatient (IN) ==
[2022-01-30] MEDS ORDERED: SODIUM CHLORIDE 0.9% 1,000 ML IV STA ×2 (18:24→20:47)
[2022-01-30] MEDS ORDERED: ONDANSETRON 4 MG/2 ML VIAL IV STA (18:24)
[2022-01-30 19:01] LABS: Basophils % 0.3 % (0.0-0.8); Eosinophils # 0.2 10*3/uL (0.0-0.87); Eosinophils % 2.9 % (0.00-10.9); Hematocrit 22.6 VOL% (35.7-47.0); Immature Granulocytes % 0.5 %; Immature Granulocytes Absolute 0.03 #; Lymphocytes # 0.9 10*3/uL (1.4-4.0); Lymphocytes % 14.8 % (21.3-54.2); Mean Corpuscular HGB Conc 28.3 GM/DL (32-36); Mean Corpuscular Volume 81.3 FL (87-102); Monocytes # 0.3 10*3/uL (0.11-0.8); Monocytes % 5.5 % (1.7-12.7); Red Blood Count 2.78 MC/CUMM (3.8-5.5); Red Cell Distribution Width 16.1 % (9.3-17.3); White Blood Count 6.2 T/CUMM (4-12)
[2022-01-30 19:15] LABS: Hypochromia 1+; Platelet Estimate Decreased
[2022-01-30 19:16] LABS: Albumin 1.9 G/DL (3.4-5.0); Bilirubin,Total 0.4 MG/DL (0.20-1.00); Potassium 3.4 MMOL/L (3.5-5.1); Total Protein 8.8 G/DL (6.4-8.2)
[2022-01-30] MEDS ORDERED: SODIUM CHLORIDE 0.9% 1,000 ML IV PRN (20:53)
[2022-01-30] MEDS ORDERED: MORPHINE 2 MG/1 ML SYRINGE IV PRN (22:07)
[2022-01-30] MEDS ORDERED: ALBUTEROL 2.5 MG/3 ML NEB RESP TX PRN (22:07)
[2022-01-30] MEDS ORDERED: ONDANSETRON 4 MG/2 ML VIAL IV PRN (22:07)
[2022-01-30] MEDS: cefTRIAXone 1,000 MG in SODIUM CHLORIDE 0.9% 100 ML IV SCH (22:16)
[2022-01-30] MEDS: metroNIDAZOLE INJ 500 MG/100 ML PREMIX IV SCH (22:26)
[2022-01-30 22:33] LABS: Bilirubin,Urine Negative (Negative); Glucose,Urine (UA) Negative (Negative); Ketones,Urine Negative (Negative); Mucus,Urine Few /LPF (Occasional); Nitrite,Urine Negative (Negative); Protein,Urine 30 mg/dL (Negative); RBC,Urine 72 /HPF (0-4); Squamous Epithelial Cell,Urine Occasional /HPF (0-10); Urine Appearance Clear (Clear); Urine Color Yellow (Yellow); Urine Specific Gravity 1.015 (1.001-1.035); Urine pH 5.5 (4.5-8.0)
[2022-01-30 22:34] LABS: Blood, Urine Large mg/dL (Negative); Urine Urobilinogen 0.2 eU/dL (<2.0)
[2022-01-31] MEDS: FAMOTIDINE 20 MG/2 ML VIAL IV SCH ×3 (04:55→22:07)
[2022-01-31] MEDS: metroNIDAZOLE INJ 500 MG/100 ML PREMIX IV SCH ×3 (05:49→22:08)
[2022-01-31] MEDS: SODIUM CHLOR 0.9% KCL 20 MEQ 20 MEQ/1,000 ML BAG IV SCH ×2 (08:18→18:00)
[2022-01-31 08:36] LABS: Hemoglobin 6.4 GM/DL (12.0-16.0); Platelet Count 6 T/CUMM (130-400)
[2022-01-31 09:29] LABS: Basophils % 0.7 % (0.0-0.8); Eosinophils # 0.3 10*3/uL (0.0-0.87); Eosinophils % 6.3 % (0.00-10.9); Hematocrit 31.5 VOL% (35.7-47.0); Hemoglobin 9.8 GM/DL (12.0-16.0); Immature Granulocytes % 0.5 %; Immature Granulocytes Absolute 0.02 #; Lymphocytes # 1.1 10*3/uL (1.4-4.0); Lymphocytes % 27.1 % (21.3-54.2); Mean Corpuscular HGB Conc 31.1 GM/DL (32-36); Monocytes # 0.3 10*3/uL (0.11-0.8); Monocytes % 7.5 % (1.7-12.7); Neutrophils % 57.9 % (38.7-73.9); Red Blood Count 3.89 MC/CUMM (3.8-5.5); Red Cell Distribution Width 16.5 % (9.3-17.3); White Blood Count 4.1 T/CUMM (4-12)
[2022-01-31 09:30] LABS: Platelet Count 10 T/CUMM (130-400)
[2022-01-31 09:46] LABS: Albumin 1.9 G/DL (3.4-5.0); Bilirubin,Total 0.5 MG/DL (0.20-1.00); Calcium 7.9 MG/DL (8.5-10.1); Osmolality,Calculated 275.5 MOS/KG (273-304); Potassium 3.4 MMOL/L (3.5-5.1); Total Protein 8.2 G/DL (6.4-8.2)
[2022-01-31] MEDS ORDERED: DEXAMETHASONE 10 MG/1 ML VIAL IV SCH (11:30)
[2022-01-31] MEDS ORDERED: MAGNESIUM SULF RIDER 4 GM/100 ML PREMIX IV ONE (11:30)
[2022-01-31] MEDS: DEXAMETHASONE INJ 40 MG in SODIUM CHLORIDE 0.9% 50 ML IV SCH (13:04)
[2022-01-31] MEDS: IMMUNE GLOBULIN 10% 40 GM in PREMIX 1 EACH IV SCH (14:21)
[2022-01-31] MEDS: cefTRIAXone 1,000 MG in SODIUM CHLORIDE 0.9% 100 ML IV SCH (22:07)
[2022-02-01] MEDS: metroNIDAZOLE INJ 500 MG/100 ML PREMIX IV SCH ×3 (04:46→23:15)
[2022-02-01] MEDS: SODIUM CHLOR 0.9% KCL 20 MEQ 20 MEQ/1,000 ML BAG IV SCH ×2 (04:47→18:58)
[2022-02-01 05:10] LABS: Basophils % 0.6 % (0.0-0.8); Eosinophils % 0.6 % (0.00-10.9); Hematocrit 29.3 VOL% (35.7-47.0); Hemoglobin 8.8 GM/DL (12.0-16.0); Immature Granulocytes % 0.6 %; Immature Granulocytes Absolute 0.02 #; Lymphocytes # 1.1 10*3/uL (1.4-4.0); Lymphocytes % 34.2 % (21.3-54.2); Mean Corpuscular Volume 82.8 FL (87-102); Monocytes # 0.5 10*3/uL (0.11-0.8); Monocytes % 13.5 % (1.7-12.7); Neutrophils % 50.5 % (38.7-73.9); Red Blood Count 3.54 MC/CUMM (3.8-5.5); Red Cell Distribution Width 16.5 % (9.3-17.3); White Blood Count 3.3 T/CUMM (4-12)
[2022-02-01 05:23] LABS: INR 1.2
[2022-02-01 05:24] LABS: Platelet Count 11 T/CUMM (130-400)
[2022-02-01 05:29] LABS: Hypochromia Slight
[2022-02-01 05:30] LABS: Microcytosis Slight; Platelet Estimate Decreased
[2022-02-01 05:33] LABS: Folate 6.25 NG/ML (5.38-24.0)
[2022-02-01 05:36] LABS: Alanine Aminotransferase 14 U/L (13-56); Albumin 1.7 G/DL (3.4-5.0); Alkaline Phosphatase 80 U/L (45-117); Aspartate Amino Transferase 21 U/L (0-37); Bilirubin,Total < 0.39 MG/DL (0.20-1.00); Blood Urea Nitrogen 9 MG/DL (7-18); Calcium 7.7 MG/DL (8.5-10.1); Carbon Dioxide 17 MMOL/L (21-32); Chloride 115 MMOL/L (98-107); Glucose 98 MG/DL (74-106); Osmolality,Calculated 277.4 MOS/KG (273-304); Potassium 3.8 MMOL/L (3.5-5.1); Sodium 140 MMOL/L (136-145); Total Protein 8.4 G/DL (6.4-8.2)
[2022-02-01 05:50] LABS: % Iron Saturation 8.2 % (18-50)
[2022-02-01] MEDS: DEXAMETHASONE INJ 40 MG in SODIUM CHLORIDE 0.9% 50 ML IV SCH (09:13)
[2022-02-01] MEDS: FAMOTIDINE 20 MG/2 ML VIAL IV SCH ×2 (09:16→21:29)
[2022-02-01] MEDS: IMMUNE GLOBULIN 10% 40 GM in PREMIX 1 EACH IV SCH (12:02)
[2022-02-01] MEDS ORDERED: ACETAMINOPHEN 500 MG TABLET PO SCH (14:00)
[2022-02-01] MEDS ORDERED: diphenhydrAMINE CAP 25 MG CAPSULE PO SCH (14:00)
[2022-02-01] MEDS: diphenhydrAMINE CAP 25 MG CAPSULE PO SCH (14:31)
[2022-02-01] MEDS: ACETAMINOPHEN 500 MG TABLET PO SCH (14:32)
[2022-02-01] MEDS: FERRIC GLUCONATE COMPLEX 125 MG in SODIUM CHLORIDE 0.9% 100 ML IV SCH (15:47)
[2022-02-01] MEDS: cefTRIAXone 1,000 MG in SODIUM CHLORIDE 0.9% 100 ML IV SCH (21:30)
[2022-02-02 05:49] LABS: Basophils % 0.4 % (0.0-0.8); Hematocrit 30.6 VOL% (35.7-47.0); Hemoglobin 9.2 GM/DL (12.0-16.0); Immature Granulocytes % 0.2 %; Immature Granulocytes Absolute 0.01 #; Lymphocytes # 1.3 10*3/uL (1.4-4.0); Lymphocytes % 29.2 % (21.3-54.2); Mean Corpuscular HGB Conc 30.1 GM/DL (32-36); Monocytes # 0.5 10*3/uL (0.11-0.8); Monocytes % 11.2 % (1.7-12.7); Red Blood Count 3.73 MC/CUMM (3.8-5.5); Red Cell Distribution Width 17.1 % (9.3-17.3); White Blood Count 4.6 T/CUMM (4-12)
[2022-02-02] MEDS: metroNIDAZOLE INJ 500 MG/100 ML PREMIX IV SCH ×2 (06:15→16:06)
[2022-02-02 06:16] LABS: Platelet Count 20 T/CUMM (130-400)
[2022-02-02 06:25] LABS: Calcium 7.4 MG/DL (8.5-10.1); Osmolality,Calculated 279.3 MOS/KG (273-304); Potassium 3.8 MMOL/L (3.5-5.1)
[2022-02-02 07:07] LABS: Platelet Estimate Decreased
[2022-02-02] MEDS: SODIUM CHLOR 0.9% KCL 20 MEQ 20 MEQ/1,000 ML BAG IV SCH ×2 (08:06→16:06)
[2022-02-02] MEDS: ACETAMINOPHEN 500 MG TABLET PO SCH (08:34)
[2022-02-02] MEDS: diphenhydrAMINE CAP 25 MG CAPSULE PO SCH (08:35)
[2022-02-02] MEDS: DEXAMETHASONE INJ 40 MG in SODIUM CHLORIDE 0.9% 50 ML IV SCH (09:45)
[2022-02-02] MEDS: IMMUNE GLOBULIN 10% 40 GM in PREMIX 1 EACH IV SCH (10:34)
[2022-02-02] MEDS: FAMOTIDINE 20 MG/2 ML VIAL IV SCH (10:40)
[2022-02-02] MEDS: FERRIC GLUCONATE COMPLEX 125 MG in SODIUM CHLORIDE 0.9% 100 ML IV SCH (10:46)
[2022-02-02 11:36] VITALS: BP 132/71
== END 2022-02-02 14:57 | disposition home or self-care (01) | DRG 894 ==
LOC: N.ED 18:05 → N.EDINP 22:07 → SUATTDRO 22:07 → N.CC 01-31 00:44 → N.5E 01-31 18:00
PROVIDERS: ADMIT Internal Medicine; ATTEND Internal Medicine